=== PATIENT | female | born 1990 | race Caucasian/White ===

== ENCOUNTER 2018-12-03 23:48 | Emergency (ER) | payer OTHER ==
[~2018-12-03] VITALS: Ht 157.5 cm; Wt 55.8 kg
[~2018-12-03 23:48] MED LIST: IBUPROFEN800 MG PO; PERCOCET 10/3251 TA1 PO; PRENAVITE1 TAB PO
[2018-12-03 23:59] VITALS: Ht 157.5 cm; Wt 55.8 kg
[2018-12-04] MEDS ORDERED: PROZAC20 MG PO
[2018-12-04] MEDS ORDERED: KLONOPIN1 MG PO
[2018-12-04] MEDS ORDERED: KEFLEX500 MG PO (00:43)
[2018-12-04] MEDS ORDERED: TYLENOL W/CODEI1 TAB PO (00:43)
[2018-12-04] MEDS ORDERED: CLEOCIN HCL300 MG PO (00:43)
[2018-12-04 01:14] VITALS: BP 121/79
[2018-12-05] MEDS ORDERED: EFFEXOR XR75 MG PO (03:37)
== END 2018-12-04 01:16 | disposition home or self-care (01) ==
LOC: D.ER 23:48
DX: L02.01 Cutaneous abscess of face (principal)

== ENCOUNTER 2018-12-04 23:10 | Inpatient (IN) | payer OTHER ==
[~2018-12-04] VITALS: Ht 157.5 cm; Wt 52.7 kg
[~2018-12-04 23:10] MED LIST changes: +CLEOCIN HCL300 MG PO; +KEFLEX500 MG PO; +KLONOPIN1 MG PO; +PROZAC20 MG PO; +TYLENOL W/CODEI1 TAB PO
--- NOTE | 2018-12-05 01:14 | NUR ---
MENTAL HEALTH SCREEN COMPLETE, PT CONSIDERED LOW RISK.
[2018-12-05 01:49] LABS: BASOPHILS 0.3 % (0-2); EOSINOPHILS 1.2 % (0-7); HEMATOCRIT 35.9 % (36.0-48.0); HEMOGLOBIN 12.9 g/dL (12-16); IMMATURE GRANULOCYTES 0.3 % (0-5); LYMPHOCYTES 17.9 % (15-50); MCH 33.2 pg (26.0-34.0); MCHC 35.9 g/dL (31.0-37.0); MCV 92.5 fL (80.0-100.0); MEAN PLATELET VOLUME 10.3 fL (7.4-10.4); MONOCYTES 7.2 % (2-11); NEUTROPHILS 73.1 % (40-80); RBC 3.88 10x6/uL (4.00-5.40); RDW 14.3 % (11.5-14.5); WBC 11.8 10x3/uL (4.8-10.8)
[2018-12-05 01:52] LABS: PLATELET COUNT 229 10x3/uL (130-400)
[2018-12-05 02:06] LABS: ALBUMIN 3.2 g/dL (3.4-5.0); ALKALINE PHOSPHATASE 63 U/L (46-116); ALT (SGPT) 16 U/L (10-68); BILIRUBIN - TOTAL 0.59 mg/dL (0.2-1.3); CALC OSMOLALITY 276 mosm/kg (275-300); CALCIUM 8.5 mg/dL (8.5-10.1); CARBON DIOXIDE 31.9 mmol/L (21.0-32.0); CHLORIDE - SERUM 100 mmol/L (98-107); CREATININE - SERUM 0.6 mg/dL (0.6-1.3); GLUCOSE 99 mg/dL (74-106); PROTEIN - SERUM 6.6 g/dL (6.4-8.2); SODIUM 139 mmol/L (136-145); UREA NITROGEN 10 mg/dL (7-18); eGFR NON AFRICAN AMERICAN > 90 mL/min (90-120)
[2018-12-05 02:19] LABS: POTASSIUM - SERUM 2.3 mmol/L (3.5-5.1)
--- NOTE | 2018-12-05 02:24 | NUR ---
REPORT RECEIVED ON PT. PT POTASSIUM NOTED TO BE 2.3 PL[address]ED [address] PR[address] TOLEDO STANDARD ORDERS. PT WILL BE TREATED FOR POTASSIUM ONCE INTO ROOM
--- NOTE | 2018-12-05 02:28 | NUR ---
DR BRITT NOTIFIED AND REVIEWED PT's BEHAVIOR AND ASSESSMENT RESULTS. PT IS A LOW RISK PER DR BRITT. DR BRITT STATED TO GIVE RESOURCES AT TIME OF DISCHARGE. NO FURTHER ORDERS AT THIS TIME, RESOURCES REVIEWED WITH PAT AND SHE VERBALIZED UNDERSTANDING.
--- NOTE | 2018-12-05 03:22 | NUR ---
ER DOCTOR PUT IN AN ORDER ONCE NURSE GOT POTASSIUM PULLED FOR ELECT. PROTOCOL WILL RETURN THE 3 PACKETS OF POTASSIUM. PT ARRIVED IN ROOM. VANC STARTED ORDERED. WILL CPOC
--- NOTE | 2018-12-05 03:27 | NUR ---
K LYTE GIVEN ORDERED. PT VERBALIZED UNDERSTANDING OF MEDICATION AND POTASSIUM REPLACEMENT WILL CPOC
[2018-12-05] MEDS ORDERED: EFFEXOR XR75 MG PO (03:37)
--- NOTE | 2018-12-05 04:16 | NUR ---
PT HAS A STANDARD ORDER FROM ER FOR TELEMETRY. PT IS 28 YEARS OF AGE. NO HISTORY OF CARDIAC AND IS HERE FOR ABCESS ON FOREHEAD. NO MONITOR PLACED AT THIS TIME. WILL PLACE IF ATTENDING ORDERS ONCE PT IS ACCESSED BY ATTENDING
[2018-12-05 04:19] VITALS: BP 115/63; BMI 21.2
[2018-12-05 07:47] VITALS: BP 120/81
[2018-12-05 10:13] VITALS: Ht 157.5 cm; Wt 52.7 kg
[2018-12-05 12:00] VITALS: BP 114/76
[2018-12-05 16:00] VITALS: BP 114/71
--- NOTE | 2018-12-05 16:19 | NUR ---
I have reviewed this patient and I concur with the Shift Assessment completed by the Licensed Practical Nurse today this shift.
--- NOTE | 2018-12-05 19:00 | NUR ---
PATIENT LAYING IN BED. EYES SWOLLEN ALMOST COMPLETELY SHUT. PATIENT HAS NO COMPLAINTS AT THIS TIME. NO DISTRESS NOTED. FAMILY AT BEDSIDE.
[2018-12-05 20:00] VITALS: BP 100/67
--- NOTE | 2018-12-05 21:10 | NUR ---
PATIENT LAYING IN BED. PATIENT REQUESTED SNACK. PATIENT RECIEVED SNACK. PATIENT HAS NO OTHER COMPLAINTS AT THIS TIME. NO DISTRESS NOTED.
--- NOTE | 2018-12-05 22:47 | NUR ---
PATIENT STATES SHE RECIEVED A CALL FROM HER STALKER. SECURITY CALLED AND PATIENT GAVE DESCRIPTION OF STALKER. HE IS "IN HIS 40'S, HAS A BEER BELLY, DIRTY BLONDE HAIR, TALLER AND LOOKS LIKE HE USE TO PLAY FOOTBALL." SIGN POSTED ON DOOR TO SEE NURSE BEFORE ENTERING. SECURITY SAID IF HE SHOWS UP TO CALL THEM AGAIN AND TO CALL [facility]. PATIENT AWARE AND PATIENT ADDED PASSWORD TO HER CHART.
--- NOTE | 2018-12-06 00:05 | NUR ---
I have reviewed this patient and I concur with the Shift Assessment completed by the Licensed Practical Nurse today this shift.
[2018-12-06 00:07] VITALS: BP 103/60
[2018-12-06 00:54] LABS: APPEARANCE CLEAR (CLEAR); BILIRUBIN NEGATIVE (NEGATIVE); COLOR YELLOW (YELLOW); GLUCOSE NEGATIVE (NEGATIVE); KETONE SMALL mg/dL (NEGATIVE); NITRITE NEGATIVE (NEGATIVE); PROTEIN NEGATIVE (NEGATIVE); SPECIFIC GRAVITY 1.015 (1.005-1.020); UROBILINOGEN NORMAL (NORMAL)
[2018-12-06 00:57] LABS: BACTERIA FEW /hpf (NONE SEEN); EPITHELIAL CELLS 0-5 /hpf (0-5); RED CELLS - URINE 0-5 /hpf (0-5); WHITE CELLS - URINE 0-5 /hpf (0-5); YEAST <1+ /hpf (NONE SEEN)
[2018-12-06 01:05] LABS: UDS - AMPHET POSITIVE QUAL (NEGATIVE); UDS - BARB NEGATIVE QUAL (NEGATIVE); UDS - BENZO NEGATIVE QUAL (NEGATIVE); UDS - COCAINE NEGATIVE QUAL (NEGATIVE); UDS - OPIATE POSITIVE QUAL (NEGATIVE); UDS - PCP NEGATIVE QUAL (NEGATIVE); UDS - THC POSITIVE QUAL (NEGATIVE)
--- NOTE | 2018-12-06 01:42 | NUR ---
PATIENT LAYING IN BED. EYES CLOSED, CHEST RISING AND FALLING. NO DISTRESS NOTED.
[2018-12-06 04:00] VITALS: BP 101/59
[2018-12-06 04:40] LABS: BASOPHILS 0.5 % (0-2); EOSINOPHILS 1.6 % (0-7); HEMATOCRIT 32.9 % (36.0-48.0); HEMOGLOBIN 11.1 g/dL (12-16); IMMATURE GRANULOCYTES 0.2 % (0-5); LYMPHOCYTES 33.6 % (15-50); MCH 31.9 pg (26.0-34.0); MCHC 33.7 g/dL (31.0-37.0); MEAN PLATELET VOLUME 10.5 fL (7.4-10.4); MONOCYTES 6.6 % (2-11); NEUTROPHILS 57.5 % (40-80); PLATELET COUNT 224 10x3/uL (130-400); RBC 3.48 10x6/uL (4.00-5.40); RDW 14.6 % (11.5-14.5)
[2018-12-06 04:43] LABS: MCV 94.5 fL (80.0-100.0); WBC 6.4 10x3/uL (4.8-10.8)
[2018-12-06 05:07] LABS: ALBUMIN 2.4 g/dL (3.4-5.0); ALKALINE PHOSPHATASE 50 U/L (46-116); ALT (SGPT) 14 U/L (10-68); BILIRUBIN - TOTAL 0.31 mg/dL (0.2-1.3); CALCIUM 7.7 mg/dL (8.5-10.1); CARBON DIOXIDE 28.1 mmol/L (21.0-32.0); CHLORIDE - SERUM 107 mmol/L (98-107); CREATININE - SERUM 0.5 mg/dL (0.6-1.3); GLUCOSE 106 mg/dL (74-106); PROTEIN - SERUM 5.3 g/dL (6.4-8.2); SODIUM 142 mmol/L (136-145); VANCOMYCIN - TROUGH 16.1 ug/mL (10.0-20.0); eGFR NON AFRICAN AMERICAN > 90 mL/min (90-120)
[2018-12-06 05:10] LABS: CALC OSMOLALITY 280 mosm/kg (275-300); POTASSIUM - SERUM 3.7 mmol/L (3.5-5.1); UREA NITROGEN 6 mg/dL (7-18)
--- NOTE | 2018-12-06 07:15 | NUR ---
ALERT AND ORIENTED. LUNGS CLEAR BILATERALLY IN ALL R[place]. HEART SOUNDS S1 AND S2 HEARD IN ALL R[place]. BOWEL SOUNDS ACTIVE X 4. SKIN INTACT WITHOUT REDNESS. SPIDER BITE NOTED TO FOREHEAD WITH FOREHEAD AND OCULAR SWELLING. BED LOW. CALL LIRA AND PERSONAL ITEMS IN REACH. WILL CONTINUE TO MONITOR.
[2018-12-06 08:27] VITALS: BP 110/53
--- NOTE | 2018-12-06 08:30 | NUR ---
PATIENT REFUSES SCDS. EDUCATION PROVIDED.
--- NOTE | 2018-12-06 09:38 | NUR ---
RESTING IN BED. BOYFRIEND AT BEDSIDE. DENIES NEEDS. PLACED IN TEMPORARY CONTACT ISO TO R/O MRSA. EDUCATION PROVIDED TO PATIENT AND BOYFRIEND. VERBALIZED UNDERSTANDING. DENIES FURTHER QUESTIONS. WILL CONTINUE TO MONITOR.
--- NOTE | 2018-12-06 10:45 | NUR ---
REQUESTED AND GIVEN PRN NORCO FOR PAIN 11/24.
--- NOTE | 2018-12-06 12:13 | NUR ---
PATIENT SLEEPING. WILL CONTINUE TO MONITOR.
[2018-12-06 12:22] VITALS: BP 121/72
--- NOTE | 2018-12-06 12:59 | NUR ---
IV INFILTRATED TO RFA. RESITED TO LFA AFTER 2 ATTEMPTS.
--- NOTE | 2018-12-06 14:41 | NUR ---
PATIENT SLEEPING. WILL CONTINUE TO MONITOR.
--- NOTE | 2018-12-06 16:38 | NUR ---
RESTING IN BED. DENIES PAIN. DENIES NEEDS. WILL CONTINUE TO MONITOR.
[2018-12-06 16:44] VITALS: BP 108/58
--- NOTE | 2018-12-06 18:24 | NUR ---
PATIENT SLEEPING. BED LOW. CALL LIRA AND PERSONAL ITEMS IN REACH.
[2018-12-06 20:00] VITALS: BP 104/64
[2018-12-07] VITALS: BP 99/71
--- NOTE | 2018-12-07 01:50 | NUR ---
PATIENT LAYING IN BED. EYES CLOSED, CHEST RISING AND FALLING. NO DISTRESS NOTED.
[2018-12-07 04:00] VITALS: BP 91/55
--- NOTE | 2018-12-07 05:15 | NUR ---
I have reviewed this patient and I concur with the Shift Assessment completed by the Licensed Practical Nurse today this shift.
[2018-12-07 06:23] LABS: BASOPHILS 0.4 % (0-2); EOSINOPHILS 1.8 % (0-7); HEMATOCRIT 33.4 % (36.0-48.0); HEMOGLOBIN 11.5 g/dL (12-16); IMMATURE GRANULOCYTES 0.1 % (0-5); LYMPHOCYTES 35.7 % (15-50); MCH 32.7 pg (26.0-34.0); MCHC 34.4 g/dL (31.0-37.0); MCV 94.9 fL (80.0-100.0); MEAN PLATELET VOLUME 11.2 fL (7.4-10.4); RBC 3.52 10x6/uL (4.00-5.40); RDW 14.5 % (11.5-14.5); WBC 6.8 10x3/uL (4.8-10.8)
[2018-12-07 06:39] LABS: CALC OSMOLALITY 281 mosm/kg (275-300); CALCIUM 7.4 mg/dL (8.5-10.1); CARBON DIOXIDE 28.4 mmol/L (21.0-32.0); CHLORIDE - SERUM 108 mmol/L (98-107); CREATININE - SERUM 0.5 mg/dL (0.6-1.3); GLUCOSE 83 mg/dL (74-106); MAGNESIUM - SERUM 1.6 mg/dL (1.8-2.4); PLATELET COUNT 275 10x3/uL (130-400); POTASSIUM - SERUM 3.4 mmol/L (3.5-5.1); SODIUM 143 mmol/L (136-145); UREA NITROGEN 7 mg/dL (7-18); eGFR NON AFRICAN AMERICAN > 90 mL/min (90-120)
--- NOTE | 2018-12-07 07:00 | NUR ---
RECEIVED REPORT. ASSUMED CARE OF PATIENT. CALL LIGHT WITHIN REACH. RESTING IN BED WITH EYES CLOSED. PATIENT BOYFRIEND, SCOTT, WITH PATIENT AT BEDSIDE. RESP EVEN AND UNLABORED. NO DISTRESS AT THIS TIME. PT REMAINS ON PRECAUTIONARY CONTACT PRECAUTION FOR POSSIBLE MRSA FROM SPIDER BITE TO FOREHEAD. NO ACUTE DISTRESS.
[2018-12-07 08:00] VITALS: BP 117/61
--- NOTE | 2018-12-07 11:33 | NUR ---
RESTING IN BED WITH EYES CLOSED. K+ SUPPLEMENT NOW AVAILABLE [facility]MINIST[facility] FOR K+3.4 THIS AM. NO DISTRESS. IV FLUIDS INFUSING ORDERED.
[2018-12-07 12:38] VITALS: BP 98/60
--- NOTE | 2018-12-07 13:46 | NUR ---
MEDICATED FOR PAIN AT THIS TIME. NO DISTRESS.
--- NOTE | 2018-12-07 15:25 | NUR ---
PATIENTS MOM CALLED TO CHECK ON HER. INFORMED HER PATIENT IS DOING WELL, SHE IS LYING IN BED ON HER PHONE AND THE TV IS ALSO ON. PATIENTS MOM STATES SHE WILL TRY TO CALL HER. UPDATED HER ON CONDITION OF [facility] OF ABSCESS HAS CAME OUT. NOTIFIED PATIENT THAT HER MOM IS TRYING TO CALL HER.
[2018-12-07 15:48] VITALS: BP 97/49
--- NOTE | 2018-12-07 17:51 | NUR ---
MEDICATED FOR PAIN AT THIS TIME. NO DISTRESS.
--- NOTE | 2018-12-07 19:22 | NUR ---
PT RESTING IN BED. LEFT FOREARM IV HAS REDNESS FROM TAPE. REMOVED TAPE AND PLACED A NEW TEGADERM. PT HAS NO S/S OF DISTRESS. DENIES ANY NEEDS. NAME AND DATE PLACED ON BOARD. WILL CPOC
[2018-12-07 20:00] VITALS: BP 116/91
--- NOTE | 2018-12-07 21:39 | NUR ---
REMOVED LEFT FOREARM 22G PIV AND PLACED A NEW 20G PIV IN BACK OF FOREARM. ONE ATTEMPT. PT COMPLAINS OF PAIN. DILAUDID GIVEN. PT DENIES ANY OTHER NEEDS. WILL CPOC
--- NOTE | 2018-12-07 21:55 | NUR ---
DRSG ON FOREHEAD CHANGED. CLEANED AND PLACED NEW DRSG. WOUND HAS AN OPENING AND OPEN SPACE INSIDE WOUND. DRSG NOW CDI. NS INFUSING ORDERED. WILL CPOC
[2018-12-08] VITALS: BP 112/52
[2018-12-08 04:00] VITALS: BP 107/55
--- NOTE | 2018-12-08 05:35 | NUR ---
PT BUMPED FOREHEAD ON TABLE. PT IS NOW IN SHARP THROBBING PAIN. DILAUDID GIVEN FOR PAIN. MORNING PROTONIX GIVEN. PT DENIES ANY OTHER NEEDS. WILL CPOC
[2018-12-08 06:45] LABS: BASOPHILS 0.4 % (0-2); EOSINOPHILS 1.6 % (0-7); HEMATOCRIT 33.1 % (36.0-48.0); HEMOGLOBIN 11.4 g/dL (12-16); IMMATURE GRANULOCYTES 0.1 % (0-5); LYMPHOCYTES 40.1 % (15-50); MCH 32.8 pg (26.0-34.0); MCHC 34.4 g/dL (31.0-37.0); MCV 95.1 fL (80.0-100.0); MEAN PLATELET VOLUME 10.3 fL (7.4-10.4); MONOCYTES 6.3 % (2-11); NEUTROPHILS 51.5 % (40-80); PLATELET COUNT 285 10x3/uL (130-400); RBC 3.48 10x6/uL (4.00-5.40); RDW 14.5 % (11.5-14.5); WBC 7.3 10x3/uL (4.8-10.8)
[2018-12-08 06:59] LABS: CALC OSMOLALITY 278 mosm/kg (275-300); CALCIUM 7.7 mg/dL (8.5-10.1); CARBON DIOXIDE 30.8 mmol/L (21.0-32.0); CHLORIDE - SERUM 107 mmol/L (98-107); CREATININE - SERUM 0.6 mg/dL (0.6-1.3); GLUCOSE 88 mg/dL (74-106); PHOSPHOROUS 2.9 mg/dL (2.5-4.9); POTASSIUM - SERUM 3.8 mmol/L (3.5-5.1); SODIUM 141 mmol/L (136-145); eGFR NON AFRICAN AMERICAN > 90 mL/min (90-120)
[2018-12-08 07:02] LABS: UREA NITROGEN 10 mg/dL (7-18)
--- NOTE | 2018-12-08 07:24 | NUR ---
INITIAL ROUNDING, PATIENT AWAKE, IN BED ON HER RIGHT SIDE AND DENIES PAIN. DRESSING TO FOREHEAD CDI, CALL LIGHT IN REACH. WHITE BOARD UPDATED.
[2018-12-08 08:44] VITALS: BP 102/64
[2018-12-08] MEDS ORDERED: MUPIROCIN22 GM TOPICAL (11:32)
[2018-12-08] MEDS ORDERED: DOXYCYCLINE HY100 M2 PO (11:32)
[2018-12-08] MEDS ORDERED: HYDROCODON-ACE1 EAC7 PO (11:33)
--- NOTE | 2018-12-08 12:40 | NUR ---
THE PATIENT REPORTS HER [facility] HOME WILL BE HERE APPROX 4-5 PM, DISTRIBUTION COORDINATOR NOTIFIED, IV REMOVED, CATH TIP IN TACT. PATIENT REQUESTED LIGHTS TO BE OFF FOR HER TO NAP
--- NOTE | 2018-12-08 16:08 | MORECARE ---
CASE MANAGEMENT DISCHARGE SUMMARY PATIENT: KARLEY CARPIO UNIT: [id number] ADM DATE: 12/05/18 AGE: 28 : [birth year] SEX: F ROOM/BED: D.2133 AUTHOR: LUZ MARINA MCKEON PHYSICIAN: REFERRING PHYSICIAN: JASON TOLEDO MD DATE OF SERVICE: 12/08/18 Discharge Plan Patient Name: KARLEY CARPIO Facility: [facility]:[place] : 1990 Planned Disposition: Home Anticipated Discharge Date: 12/08/18 Discharge Date: Expected LOS: 3 Initial Reviewer: [email or web address] Initial Review Date: 12/08/2018 Generated: 12/08/18 5:08 pm Patient Name: KRALEY CARPIO Page [id number] at 1608 All edits/amendments must be made on the electronic document DICTATION DATE: 12/08/181606 MARINE FIRE FIGHTER: AKASH 12/08/181606 RPT#: [id number] DC DATE: STATUS: ADM IN [facility] [address] [place] [address] END OF REPORT
--- NOTE | 2018-12-08 16:15 | MORECARE ---
CASE MANAGEMENT DISCHARGE SUMMARY PATIENT: KARLEY CARPIO UNIT: [id number] ADM DATE: 12/05/18 AGE: 28 : 86 SEX: F ROOM/BED: D.4649 AUTHOR: LINDA,DOC PHYSICIAN: REFERRING PHYSICIAN: JASON TOLEDO MD DATE OF SERVICE: 12/08/18 Discharge Plan Patient Name: KARLEY CARPIO Facility: [facility]:[place] : 1990 Planned Disposition: Home Anticipated Discharge Date: 12/08/18 Discharge Date: Expected LOS: 3 Initial Reviewer: [email or web address] Initial Review Date: 12/08/2018 Generated: 12/08/18 5:15 pm Comments DCP- Discharge Planning Updated by [email or web address]: Gary Bermudez on 12/08/18 3:[address] Patient Name: KARLEY CARPIO Admission Status: ER Accout number: [id number] Admission Date: 12-05-2018 : 1990 Admission Diagnosis:TOXIC EFFECT OF UNSP SPIDER VENOM, ACCIDENTAL, INIT Attending: JASON TOLEDO Current LOS: 3 Anticipated DC Date: 12-08-2018 Planned Disposition: Home Primary Insurance: [facility] Discharge Planning Comments: CM MET WITH PT IN ROOM TO DISCUSS DISCHARGE PLANNING AND NEEDS. PT REPORTS LIVING AT HOME INDEPENDENTLY WITH HER MOTHER. PT HAS NO MEDICAL EQUIPMENT AND NO OUTSIDE SERVICES ASSISTING IN THE HOME. CM DISCUSSED AVAILABILITY OF HOME HEALTH, REHAB SERVICES AND MEDICAL EQUIPMENT. PT DENIES DISCHARGE NEEDS, REPORTS HER MOTHER WILL PICK HER UP FOR DISCHARGE HOME. Editor At Large: Gary Bermudez DCPIA - Discharge Planning Initial Assessment Updated by [email or web address]: Gary Bermudez on 12/08/18 4:10 pm * Is the patient Alert and Oriented? Yes * How many steps to enter\exit or inside your home? * PCP DR. VALENTINO, DIMMITT * Pharmacy [facility] [address], WILL BE CHANGING TO [facility] [address] * Preadmission Environment Home with Family * ADLs Independent * Equipment None * Other Equipment [facility] - MEDICAL EQUIPMENT PROVIDER PREFERENCE * List name and contact numbers for known caregivers / representatives who currently or will assist patient after discharge: GEOVANNA MERCER, MOTHER, * Verbal permission to speak to the caregivers and representatives has been obtained from the patient. N/A * Community resources currently utilized None * Please name any agencies selected above. NONE * Additional services required to return to the preadmission environment? No * Can the patient safely return to the preadmission environment? Yes * Has this patient been hospitalized within the prior 30 days at any hospital? No Last DP export: 12/08/18 3:08 p Patient Name: KARLEY CARPIO Page [id number] at 1615 All edits/amendments must be made on the electronic document DICTATION DATE: 12/08/18 1615 CANE WEIGHER: AKASH 12/08/18 1615 RPT#: [id number] DC DATE: STATUS: ADM IN [facility] [address] [place] [address] END OF REPORT
== END 2018-12-08 17:12 | disposition home or self-care (01) | DRG 603 ==
LOC: D.ER 23:10 → D.M2 12-05 01:32
PROVIDERS: Family Medicine; ADMIT Internal Medicine Nephrology; ATTEND Internal Medicine Nephrology
DX: L03.213 Periorbital cellulitis (principal); F17.213 Nicotine dependence, cigarettes, with withdrawal; T63.301A Toxic effect of unspecified spider venom, accidental (unintentional), initial encounter; D64.9 Anemia, unspecified; E87.6 Hypokalemia; F60.3 Borderline personality disorder; F43.10 Post-traumatic stress disorder, unspecified; G40.909 Epilepsy, unspecified, not intractable, without status epilepticus; F31.9 Bipolar disorder, unspecified; F10.10 Alcohol abuse, uncomplicated

== ENCOUNTER 2019-01-01 17:04 | Emergency (ER) | payer OTHER ==
[~2019-01-01] VITALS: Ht 157.5 cm; Wt 55.0 kg
[~2019-01-01 17:04] MED LIST changes: +DOXYCYCLINE HY100 M2 PO; +EFFEXOR XR75 MG PO; +HYDROCODON-ACE1 EAC7 PO; +MUPIROCIN22 GM TOPICAL
[2019-01-01 17:13] VITALS: Ht 157.5 cm; Wt 55.0 kg
[2019-01-01] MEDS ORDERED: TORADOL10 MG PO (20:08)
[2019-01-01 20:41] VITALS: BP 122/84
== END 2019-01-01 20:42 | disposition home or self-care (01) ==
LOC: D.ER 17:04
DX: S50.311A Abrasion of right elbow, initial encounter (principal); Y04.2XXA Assault by strike against or bumped into by another person, initial encounter; Y93.89 Activity, other specified; Y92.89 Other specified places as the place of occurrence of the external cause; S09.90XA Unspecified injury of head, initial encounter; M54.2 Cervicalgia; M25.511 Pain in right shoulder

== ENCOUNTER 2020-11-13 10:06 | Emergency (ER) | payer BC ==
[~2020-11-13] VITALS: Ht 157.5 cm; Wt 63.6 kg
[~2020-11-13 10:06] MED LIST changes: +CIPRO500 MG PO; +KLONOPIN0.5 MG PO; +MACROBID100 MG PO; +TORADOL10 MG PO
[2020-11-13 10:20] VITALS: Ht 157.5 cm; Wt 63.6 kg
== END 2020-11-13 12:13 | disposition home or self-care (01) ==
LOC: D.ER 10:06
DX: Z20.822 Contact with and (suspected) exposure to COVID-19 (principal); R05 Cough